=== PATIENT | male | born 1965 | race Caucasian/White ===

== ENCOUNTER 2019-05-19 11:56 | Inpatient (IN) | payer BC ==
[~2019-05-19] VITALS: Ht 177.8 cm; Wt 100.9 kg
[2019-05-19] MEDS ORDERED: IV NORMAL SALINE 1,000ML 1,000 ML IV ONE ×2 (12:15→13:30)
[2019-05-19 12:42] LABS: BASO # 0.1 x10^3/uL (0.0-0.2); BASO % 0 % (0-3); EOS # 0.1 x10^3/uL (0.0-0.7); EOS % 1 % (0-3); HEMATOCRIT 45.9 % (39.0-53.0); LYMPH # 2.4 x10^3/uL (1.0-4.8); LYMPH % 19 % (24-48); MEAN CORPUSCULAR HEMOGLOBIN 31 pg (25-35); MEAN CORPUSCULAR HGB CONC 33 g/dL (31-37); MEAN CORPUSCULAR VOLUME 95 fL (79-100); MONO # 1.1 x10^3/uL (0.0-1.1); MONO % 9 % (0-9); NEUT % 71 % (31-73); PLATELET COUNT 341 x10^3/uL (140-400); RED BLOOD COUNT 4.85 x10^6/uL (4.30-5.70); RED CELL DISTRIBUTION WIDTH 13.2 % (11.5-14.5); WHITE BLOOD COUNT 12.6 x10^3/uL (4.0-11.0)
[2019-05-19] MEDS ORDERED: DEXAMETHASONE SOD PHOS 10 MG/ML VIAL IV ONE (12:45)
[2019-05-19 12:52] LABS: TOTAL PROTEIN 8.3 g/dL (6.4-8.2)
[2019-05-19 12:53] LABS: ALBUMIN 3.5 g/dL (3.4-5.0); ALBUMIN/GLOBULIN RATIO 0.7 (1.0-1.7); C REACTIVE PROTEIN 42.2 mg/L (0-3.3); CALCIUM 9.5 mg/dL (8.5-10.1); CREATININE 1.3 mg/dL (0.7-1.3); GFR 57.5; MAGNESIUM 2.3 mg/dL (1.8-2.4); POTASSIUM 4.7 mmol/L (3.5-5.1); TOTAL BILIRUBIN 0.4 mg/dL (0.2-1.0); URIC ACID 4.7 mg/dL (3.5-7.2)
--- NOTE | 2019-05-19 12:53 | PHYS DOC ---
Past History Past Medical History: GERD, High Cholesterol Past Surgical History: Cholecystectomy Additional Past Surgical Histo: Wrist, Elbow Smoking: Quit Greater Than 1 Year Alcohol Use: None Drug Use: None Adult General Chief Complaint Chief Complaint: INSECT BITE HPI HPI Patient is a 54 year old male who presents for knee pain. Two weeks ago he started having pain and swelling in his left knee. A week ago he was seen at an outside emergency department and was diagnosed with cellulitis and started on Clindamycin. He has seen his primary care doctor twice this week. At the most recent visit his PCP was concerned the infection spread into his knee because he had increased swelling below the knee joint. PCP was concerned specifically for "sepsis". Patient does reports that the swelling and pain have significantly improved this week. A week ago his entire leg from above his knee down to the sole of his foot were edematous. The swelling has receded to just around his knee on the lateral and anterior aspect. He thinks that in the past few days there may be some increased swelling just below his patella. His pain is currently 3/10. He has not had a fever since last Wednesday. Before the cellulitis began he was doing a lot of work on his knees at his job. There was initial concern that symptoms might have stemmed from an "insect bite". Patient denies seeing a specific insect. PCP faxed over prior ED visit records. After brief review it was noted patient had normal venous doppler of LLE, normal XR of left knee, and WBC, uric acid, and lactic acid WNL. Review of Systems Review of Systems Constitutional: Reports fever and chills Eyes: Denies redness or eye pain HENT: Denies nasal congestion or sore throat Respiratory: Denies cough or shortness of breath Cardiovascular: Denies chest pain or palpitations GI: Denies abdominal pain, nausea, or vomiting : Denies dysuria or hematuria Musculoskeletal: Denies back pain, reports left knee pain Integument: Denies rash, reports left knee and lower leg swelling and erythema Neurologic: Denies headache, focal weakness or sensory changes Complete systems were reviewed and found to be within normal limits, except as documented in this note. Current Medications Current Medications Current Medications Medications (Trade) Dose Ordered Sig/Elbert Start Time Stop Time Status Last Admin Dose Admin Dexamethasone Sodium Phosphate (Decadron) 10 mg 1X ONCE 05/19/19 12:45 05/19/19 12:46 UNV Sodium Chloride 1,000 ml @ 1,000 mls/hr 1X ONCE 05/19/19 12:15 05/19/19 13:14 UNV 05/19/19 12:29 1,000 MLS/HR Physical Exam Physical Exam Constitutional: Well developed, well nourished, no acute distress, non-toxic appearance HENT: Normocephalic, atraumatic, oropharynx moist Eyes: Conjunctiva normal, no discharge Neck: Normal range of motion, no tenderness, supple, no meningeal signs Cardiovascular: Heart rate normal, regular rhythm Lungs & Thorax: Bilateral breath sounds clear to auscultation, no wheezing Abdomen: Soft, no tenderness Skin: Warm, dry, erythema and warmth on lateral aspect of knee and anterior leg below patella. Back: No tenderness, no CVA tenderness Extremities: No tenderness, ROM intact, edema below patella with tenderness to palpation, knee joint stable without significant edema Neurologic: Alert and oriented X 3, normal motor function, normal sensory function, no focal deficits noted Psychologic: Affect normal, judgement normal, mood normal Current Patient Data Vital Signs Vital Signs Date Time Temp Pulse Resp B/P (MAP) Pulse Ox O2 Delivery O2 Flow Rate FiO2 05/19/19 12:31 112 18 145/88 (107) 97 EKG EKG [] Radiology/Procedures Radiology/Procedures PROCEDURE: KNEE LEFT 3V KNEE LEFT 3V History: Pain and swelling. Comparison: None. Findings: 3 views of the left knee. Marked anterior knee soft tissue swelling. No simultaneous gas. Normal alignment of the left knee. No fracture. No significant knee joint effusion. Enthesopathic changes of the superior patella. Impression: 1. Marked anterior knee soft tissue swelling. 2. No acute osseous abnormality. Electronically signed by: Ted Chaney DO (05/19/2019 1:53 PM) [facility] Course & Med Decision Making Course & Med Decision Making Pertinent Lab and Radiologic studies reviewed. (See chart for details) Patient is a 54 year old male who presents for left knee pain with history of recently diagnosed cellulitis in his left leg for which he has been taking Clindamycin. His cellulitis has significantly improved, but his PCP was concerned because of the continued swelling below his patella and had him come to the ED for further evaluation with specific concern for sepsis. On exam he has some residual cellulitis on the anterior and lateral aspect of his left leg. Appears there is no abscess. There is edema and tenderness to palpation just below the patella. Concern for possible bursitis with possible continued overriding cellulitis. Laboratory studies show leukocytosis, hyperglycemia, lactic acidosis, and elevated LFT's. He is given dexamethasone for possible bursitis in addition to the cellulitis. Due to his leukocytosis and tachycardia and lactic acidosis he meets criteria for severe sepsis. He is started on Vancomycin and Zosyn. IVF hydration also provided. Patient requiring admission for further evaluation and treatment. Discussed with Dr. Rolle (hospitalist) who is in agreement with admission. Discussed findings and plan with patient, who acknowledges understanding and agreement. Dragon Disclaimer Dragon Disclaimer This electronic medical record was generated, in whole or in part, using a voice recognition dictation system. Departure Departure: Impression: Primary Impression: Severe sepsis Additional Impressions: Cellulitis Bursitis Failure of outpatient treatment Disposition: ADMITTED INPATIENT Admitting Physician: Amanuel Rolle Condition: STABLE Referrals: PCP,KRISTEL (PCP) Sepsis Assessment Date and Time of Assessment Date: May 19, 2019 Time: 13:30 Fluid Challenge: Is the fluid challenge complet: No IBW Target Volume Used: Yes BMI > 30: Yes Vital Signs Vital Signs Vital Signs Date Time Temp Pulse Resp B/P (MAP) Pulse Ox O2 Delivery O2 Flow Rate FiO2 05/21/19 08:21 Room Air 05/21/19 06:28 99.3 81 16 129/77 (94) 98 Temperature Source: Oral Respirations Respiratory Effort: Normal, Non-Labored Respiratory Pattern: Normal Cardiovascular Pulse Rhythm: Regular Heart: Nml rate, reg. rhythm, No rubs, clicks or gallop Lung Sounds Breath Sounds: Clear Capillary Refill Capillary Refill: Rt Hand < 3 seconds Peripheral Pulse Pulse Location: Radial Pulse Strength: Normal (2+) Pulse Assessment Method: Palpation Integumentary Skin: Warm, Dry, Other (Erythema of left anterior/lateral knee) Skin Moisture: Dry Skin Turgor: Normal Skin Color: warm, dry, erythema (left knee) Fingernail Color: WNL Critical Care Time Critical care time was [30] minutes exclusive of procedures, but included time at bedside, review of medical records, laboratory data, and radiologic studies, documentation, and discussion with admitting physician. Problem Qualifiers Additional Impressions: Cellulitis Site of cellulitis: extremity Site of cellulitis of extremity: lower extremity Laterality: left Qualified Codes: L03.116 - Cellulitis of left lower limb Bursitis Bursitis location: knee Knee bursitis location: infrapatellar bursitis Laterality: left Qualified Codes: M70.52 - Other bursitis of knee, left knee THEODORE DAWN DO May 19, 2019 12:53
[2019-05-19] MEDS ORDERED: PIPERACILLIN/TAZOBACTAM 4.5 GM in IV NORMAL SALINE 100ML 100 ML IV ONE (13:30)
[2019-05-19] MEDS ORDERED: IV NORMAL SALINE 500ML 500 ML IV ONE (13:30)
[2019-05-19] MEDS ORDERED: IV NORMAL SALINE 100ML 100 ML ONE (13:39)
[2019-05-19] MEDS ORDERED: PIPERACILLIN/TAZOBACTAM 4.5 GM VIAL IV ONE (13:39)
[2019-05-19 13:54] LABS: SEDIMENTATION RATE 78 (0-15)
--- NOTE | 2019-05-19 13:56 | RAD ---
KNEE LEFT 3V History: Pain and swelling. Comparison: None. Findings: 3 views of the left knee. Marked anterior knee soft tissue swelling. No simultaneous gas. Normal alignment of the left knee. No fracture. No significant knee joint effusion. Enthesopathic changes of the superior patella. Impression: 1. Marked anterior knee soft tissue swelling. 2. No acute osseous abnormality. Electronically signed by: Ted Chaney DO (05/19/2019 1:53 PM) [facility]
[2019-05-19] MEDS ORDERED: VANCOMYCIN 2 GM in IV NORMAL SALINE 500ML 500 ML IV ONE (14:00)
[2019-05-19 14:19] LABS: BACTERIA,URINE 0 /HPF (0-FEW); BILIRUBIN,URINE NEG (NEG); CLARITY,URINE CLEAR; COLOR,URINE YELLOW; GLUCOSE,URINE 100 mg/dL (NEG); NITRITE,URINE NEG (NEG); RBC,URINE 0 /HPF (0-2); SQUAMOUS EPITHELIAL CELL,UR OCC /LPF; UROBILINOGEN,URINE 0.2 mg/dL (0.2 mg/dL); WBC,URINE 0 /HPF (0-4)
[2019-05-19 15:00] VITALS: BP 150/89
[2019-05-19] MEDS: VANCOMYCIN PER PHARMACY MC PRN (15:25)
[2019-05-19] MEDS ORDERED: ONDANSETRON PF 4 MG/2 ML VIAL. IV PRN (15:30)
[2019-05-19] MEDS ORDERED: ACETAMINOPHEN 325 MG TABLET PO PRN (15:30)
[2019-05-19] MEDS ORDERED: BACL20TA PO (16:23)
[2019-05-19] MEDS ORDERED: CELE200C PO (16:23)
[2019-05-19] MEDS ORDERED: TAMS0.4C97 PO (16:23)
[2019-05-19] MEDS ORDERED: OMEP20CA10 PO (16:23)
[2019-05-19] MEDS ORDERED: AMIT25TA PO (16:23)
[2019-05-19] MEDS ORDERED: ZOLP5TAB5 PO (16:23)
--- NOTE | 2019-05-19 16:47 | HP ---
ADMIT DATE: ATTENDING PHYSICIAN: Dr. Duffy. CHIEF COMPLAINT: Left knee pain. HISTORY OF PRESENT ILLNESS: The patient is a 54-year-old gentleman with cellulitis of the left knee. He has seen his primary care doctor. He has prepatellar bursitis. Pain is manageable. He has had a week of clindamycin at home. He is on his knees a lot. There is no obvious effusion. He has had a negative workup for clots. Still red, erythematous. His PCP sent him to the ED, they called me. We decided to admit him for inpatient care regarding cellulitis of the left foot from the knee down, refractory to outpatient care. PAST MEDICAL HISTORY: Significant for the localized infection. PAST SURGICAL HISTORY: He has had gallbladder removed and 2 elective surgeries on his wrist and left elbow. CURRENT MEDICINES: Clindamycin. ALLERGIES: He has allergies to BUPROPION, MEPERIDINE AND CHANTIX. Exact etiology is unclear. FAMILY HISTORY: Both his parents are alive in their mid to late 70s. Father had lung disease. Current medications, no prescription meds. No history of diabetes or hypertension. REVIEW OF SYSTEMS: Significant for localized symptoms. He denied any fever, chills, sweats, palpitations, nausea, vomiting. All other systems reviewed and determined to be negative. PHYSICAL EXAMINATION: GENERAL: When I saw him, this is a pleasant, healthy gentleman. INITIAL VITAL SIGNS: In the ED showed a blood pressure 132/83, pulse is 99 and regular. He was afebrile. HEENT: Head is without trauma. Pupils are reactive. Sclerae nonicteric. Oropharynx clear. NECK: Supple, no bruits. LUNGS: Otherwise clear. CARDIOVASCULAR: Showed regular heart tones. No gallops, no murmurs. Peripheral pulses are palpable and full. ABDOMEN: Soft, scaphoid, nontender. No organomegaly. Bowel sounds were hypoactive. EXTREMITIES: Showed minimal redness and erythema of the extensor surface of the left knee extending down to the ankles. There is trace edema. NEUROLOGIC: Function focally intact. PERTINENT LABORATORY DATA AND X-RAY STUDIES: Nonfasting blood sugar was 280. Lactic acid as noted. Electrolytes within normal range. Hemoglobin is 15.0 gm; white count 12,600. ASSESSMENT: 1. A 54-year-old gentleman with cellulitis, refractory to outpatient care. 2. Probable diabetes. 3. Degenerative arthritis. 4. Prepatellar bursitis. PLAN: 1. Admit to the inpatient unit. 2. IV vancomycin. 3. I will check a hemoglobin A1c. 4. Accu-Cheks b.i.d. 5. Vancomycin intravenous. TINO DUFFY MD DR: SARAH BETH/kenna JOB#: [id number] / [id number]
[2019-05-19 19:29] VITALS: BP 117/65
[2019-05-19] MEDS: TAMSULOSIN 0.4 MG CAP.ER.24H. PO SCH (21:19)
[2019-05-19] MEDS: ZOLPIDEM 5 MG TABLET. PO SCH (21:19)
[2019-05-19] MEDS: AMITRIPTYLINE HCL 25 MG TABLET PO SCH (21:20)
[2019-05-20 02:10] LABS: HEMOGLOBIN A1C 7.3 % (4.8-5.6)
[2019-05-20] MEDS: VANCOMYCIN 1.5 GM in IV NORMAL SALINE 500ML 500 ML IV SCH ×2 (02:49→14:27)
[2019-05-20 06:28] VITALS: BP 128/65
[2019-05-20] MEDS: BACLOFEN 20 MG TABLET PO SCH (08:10)
[2019-05-20] MEDS: PANTOPRAZOLE 40 MG TABLET. PO SCH (08:11)
[2019-05-20] MEDS: metFORMIN 500 MG TABLET PO SCH ×2 (08:11→16:49)
[2019-05-20] MEDS: TAMSULOSIN 0.4 MG CAP.ER.24H. PO SCH ×2 (08:11→20:59)
[2019-05-20] MEDS: LACTOBACILLUS RHAMNOSUS GG 1 CAPSULE. PO SCH ×2 (09:39→20:59)
[2019-05-20 11:02] VITALS: BP 114/62
[2019-05-20 14:30] VITALS: BP 128/58
[2019-05-20 19:18] VITALS: BP 140/69
[2019-05-20] MEDS: ZOLPIDEM 5 MG TABLET. PO SCH (20:59)
[2019-05-20] MEDS: AMITRIPTYLINE HCL 25 MG TABLET PO SCH (20:59)
--- NOTE | 2019-05-20 22:49 | PN ---
DATE: 05/20/2019 ATTENDING PHYSICIAN: Dr. Duffy. CHIEF COMPLAINT: Left knee pain. SUBJECTIVE: The patient is asymptomatic. He is ambulating without any difficulty. Swelling in the left knee has improved. His blood sugars are still high, consistent with adult onset diabetes. He is a little perplexed because his is diabetic and he has been monitoring his blood sugars at home. Hemoglobin is 15.0 gram. Nonfasting blood sugar records were 280, 303 and 196 mg percent. His chemistry panel was unremarkable. Creatinine is 1.3. Hemoglobin A1c was elevated at 7.3. OBJECTIVE: VITAL SIGNS: Blood pressure 128/65, pulse is 89 and regular. He was afebrile. HEENT: Head is without trauma. The pupils are reactive. Sclerae are nonicteric. The oropharynx is clear. NECK: Supple. No bruits identified. LUNGS: Otherwise clear. CARDIOVASCULAR: Showed regular heart tones. No obvious gallops. Peripheral pulses are palpable and full. ABDOMEN: Soft, scaphoid, nontender, no organomegaly. EXTREMITIES: Showed diminished swelling of the left knee. There is still some residual fullness. The redness and erythema is receding. There is no peripheral edema. NEUROLOGIC: Neurologic findings focally intact. SKIN: Warm and dry. No open sores. ASSESSMENT: 1. A 54-year-old gentleman with prepatellar bursitis. 2. Secondary cellulitis, improving with IV vancomycin. 3. New onset of adult diabetes verified by blood sugar and hemoglobin A1c. PLAN: 1. Keep in the hospital another day. 2. Maintain IV vancomycin. 3. Accu-Cheks 3 times a day as ordered. 4. Diabetic diet. 5. Diabetic education. 6. I recommended the initiation of metformin 1000 mg b.i.d. with subsequent followup in addition of other oral hypoglycemics if indicated. I do not believe he needs insulin just right away. TINO DUFFY MD DR: SARAH BETH/kenna JOB#: [id number] / [id number]
[2019-05-21 02:57] LABS: VANC TR < 2.0 mcg/mL (10.0-20.0)
[2019-05-21] MEDS ORDERED: VANCOMYCIN 1.5 GM in IV NORMAL SALINE 500ML 500 ML IV SCH (04:00)
[2019-05-21] MEDS: VANCOMYCIN PER PHARMACY MC PRN (04:58)
[2019-05-21 06:28] VITALS: BP 129/77
[2019-05-21] MEDS: metFORMIN 500 MG TABLET PO SCH (08:07)
[2019-05-21] MEDS: LACTOBACILLUS RHAMNOSUS GG 1 CAPSULE. PO SCH (08:07)
[2019-05-21] MEDS: PANTOPRAZOLE 40 MG TABLET. PO SCH (08:08)
[2019-05-21] MEDS: TAMSULOSIN 0.4 MG CAP.ER.24H. PO SCH (08:08)
[2019-05-21] MEDS: BACLOFEN 20 MG TABLET PO SCH (08:08)
--- NOTE | 2019-05-21 20:45 | DS ---
DATE OF DISCHARGE: 05/21/2019 ATTENDING PHYSICIAN: Dr. Duffy FINAL DISCHARGE DIAGNOSES: 1. Cellulitis of the left leg, refractory to outpatient care. 2. Underlying diabetes mellitus, De gentry diagnosis. 3. Degenerative arthritis. 4. Prepatellar bursitis. HISTORY AND PHYSICAL: The patient is a very pleasant active 54-year-old gentleman, had been working, kneeling and developed inflammation and swelling of his left knee. He was diagnosed with prepatellar bursitis. He was evaluated, treated and sent home. He had taken a week's worth of clindamycin. The swelling persists. Redness is still prevalent. He was brought back here for inpatient care, refractory to outpatient antibiotics. We also found a nonfasting blood sugar 280, it peaked at 300. Hemoglobin A1c was elevated. Diabetes was diagnosed. He does have a family history of diabetes. PHYSICAL EXAMINATION: Please see the dictated note. PERTINENT LABORATORY AND X-RAY STUDIES: Admission white count was 12,600, hemoglobin 15.0 g/dL. Chemistry panel showed blood sugars in the 200s and 300s with the initiation of oral hypoglycemic, it came down to 110, 130 and 87 prior to discharge. Hemoglobin A1c was monitored and measured at 7.3, suggesting diabetes. COURSE IN THE HOSPITAL: The patient was admitted. He was given 3 days of IV vancomycin and marked improvement and a decrease in swelling. Pain was manageable. He was ready for discharge. On the third hospital day, I recommended continuation of the metformin just 1000 mg daily. Follow up blood sugar check and A1c through his primary care physician. I gave him the reports of his blood sugar, hemoglobin A1c as well as my history and physical. In addition, I wrote a script for Augmentin 875 b.i.d. for 7 more days, then stop and finally Percocet 10 mg p.o. every 6 hours p.r.n. pain, limited prescription, 24 total. His home meds remains unchanged. He should continue his Ambien at night, Prilosec, Flomax, and amitriptyline doses are unchanged. The patient was then discharged from our hospital in stable condition with explicit instructions and followup care. TOTAL DISCHARGE TIME SPENT: 38 minutes. TINO DUFFY MD DR: SARAH BETH/kenna JOB#: [id number] / [id number]
== END 2019-05-21 09:50 | disposition home or self-care (01) | DRG 603 ==
LOC: ER 11:56 → ICU 14:10
PROVIDERS: ADMIT Hospitalist; ATTEND Hospitalist
DX: L03.116 Cellulitis of left lower limb (principal); R65.10 Systemic inflammatory response syndrome (SIRS) of non-infectious origin without acute organ dysfunction; K21.9 Gastro-esophageal reflux disease without esophagitis; E78.00 Pure hypercholesterolemia, unspecified; M70.42 Prepatellar bursitis, left knee; M19.90 Unspecified osteoarthritis, unspecified site; E11.9 Type 2 diabetes mellitus without complications; W57.XXXA Bitten or stung by nonvenomous insect and other nonvenomous arthropods, initial encounter; Y92.89 Other specified places as the place of occurrence of the external cause; Z90.49 Acquired absence of other specified parts of digestive tract; Z87.891 Personal history of nicotine dependence; Y93.89 Activity, other specified; Z83.3 Family history of diabetes mellitus; Y99.8 Other external cause status
CPT/HCPCS: 36415; 73562; 80053; 80202; 81001; 82947; 83036; 83605; 83735; 84550; 85025; 85610; 85651; 85730; 86140; 87040; 87641; 96361; 96365; 96367; 96375; J1100; J2543; J3370; J7040; 99291-25; J7030